=== PATIENT | male | born 1985 | race African-American/Black ===

== ENCOUNTER 2020-08-01 09:49 | Emergency (ER) | payer MEDICAID ==
[~2020-08-01] VITALS: Ht 188 cm; Wt 1153.9 kg
[2020-08-01 09:55] VITALS: BP 123/81; Ht 188 cm; Wt 1153.9 kg
== END 2020-08-01 11:20 | disposition home or self-care (01) ==
LOC: ED 09:49
DX: J98.11 Atelectasis (principal)

== ENCOUNTER 2020-08-04 16:52 | Emergency (ER) | payer MEDICAID ==
[~2020-08-04] VITALS: Ht 188 cm; Wt 110.7 kg
[2020-08-04 17:02] VITALS: Ht 188 cm; Wt 110.7 kg
[2020-08-04 19:09] VITALS: BP 144/91
== END 2020-08-04 19:09 | disposition home or self-care (01) ==
LOC: ED 16:52
DX: J12.89 Other viral pneumonia (principal); Z20.828 Contact with and (suspected) exposure to other viral communicable diseases
CPT/HCPCS: U0003